=== PATIENT | female | born 1965 | race Caucasian/White ===

== ENCOUNTER 2022-11-05 19:38 | Emergency (ER) | payer OTHER, SELFPAY ==
--- NOTE | ~2022-11-05 | CT_ITS ---
EXAMINATION: CT ABDOMEN AND PELVIS WITHOUT CONTRAST CLINICAL INFORMATION: Left upper quadrant abdominal pain for about a week. COMPARISON: None TECHNIQUE: Multidetector volumetric imaging was performed from the superior aspect of the liver through the pubic symphysis. Sagittal and coronal reformatted images were obtained on the technologist's workstation. This CT examination was performed using dose optimization techniques as appropriate, variously including the following: *Automated exposure control *Adjustment of mA and/or kV according to patient size (this includes techniques or standardized protocols for targeted exams where dose is matched to indication/reason for exam; i.e. extremities or head) *Use of iterative reconstruction technique DLP: 752 mGy-cm FINDINGS: The lack of intravenous contrast limits evaluation of the solid visceral organs including the liver, spleen, pancreas, and kidneys. LUNG BASES: No focal consolidation or pleural effusion. LIVER, GALLBLADDER, AND BILIARY TREE: The liver is normal in size, shape, and attenuation. No focal hepatic lesion or biliary ductal dilatation is present. The gallbladder is unremarkable with no evidence of radiopaque gallstones, gallbladder wall thickening, or obvious pericholecystic inflammatory changes. PANCREAS: Unremarkable. SPLEEN: Unremarkable. ADRENAL GLANDS: Unremarkable. KIDNEYS AND URETERS: The kidneys are normal in size, shape, and attenuation. No hydronephrosis, hydroureter, or calculi seen. No perinephric stranding. BLADDER: Unremarkable. GASTROINTESTINAL TRACT: Small hiatal hernia. The stomach and the small bowel are nondilated. Normal appendix. Sigmoid diverticulosis but with no pericolonic inflammatory changes. No evidence of bowel obstruction. ABDOMINAL WALL: No significant hernia is appreciated. LYMPH NODES: No lymphadenopathy. VASCULAR: Limited noncontrast examination. Scattered atherosclerotic disease. The abdominal aorta is of normal diameter. PELVIC VISCERA: Unremarkable. OSSEOUS STRUCTURES: Nonspecific increase asymmetric sclerosis in the superior left iliac bone (4:445). Nonspecific focal heterogeneity of the bone marrow in the posterior left iliac bone (4:515). CT/CT abdomen pelvis wo IV con IMPRESSION: 1. Small hiatal hernia. 2. Sigmoid diverticulosis but no evidence of acute diverticulitis. 3. Nonspecific increased sclerosis in the superior left iliac bone and focal heterogeneity of the bone marrow in the posterior left iliac bone, of uncertain significance. There is no associated cortical disruption nor surrounding soft tissue abnormalities.. If indicated, consider further evaluation with an elective bone scan or pelvic MRI.
[2022-11-05 19:47] VITALS: BP 172/81; PULSE 81; RESP 20; TEMP 36.4; O2SAT 100; BMI 29.7
--- NOTE | 2022-11-05 19:48 | ED_ITS ---
HPI - Abdominal Pain General Chief Complaint: Abdominal Pain <LALA Quintana - Last Filed: 11/05/22 19:53> Stated Complaint: abdominal pain <LALA Quitnana - Last Filed: 11/05/22 19:53> Time Seen by Provider: 11/05/22 20:27 <LALA Quintana - Last Filed: 11/05/22 19:53> Source: patient <Laci Guillen MD - Last Filed: 11/05/22 22:46> Mode of arrival: ambulatory <Laci Guillen MD - Last Filed: 11/05/22 22:46> Limitations: no limitations <Laci Guillen MD - Last Filed: 11/05/22 22:46> History of Present Illness HPI narrative: Patient with history of diverticulitis complaining of pain in left upper quadrant for last 1 week , no nausea no vomiting no relation of pain with food no fever or chills no urinary complaints pain is in left upper quadrant comes and goes with no relation of movements patient's PCP called in for Cipro and Fla gyl yesterday for possible diverticulitis patient denies chest pain or shortness of breath no palpitation no diarrhea no bloody stool <Laci Guillen MD - Last Filed: 11/05/22 22:46> Related Data Home Medications: Previous Rx's Medication Instructions Recorded ibuprofen 600 mg tablet 600 mg PO Q6H PRN fever or pain 11/05/22 #30 tabs <LALA Quintana - Last Filed: 11/05/22 19:53> Allergies/Adverse Reactions: Allergies Allergy/AdvReac Type Severity Reaction Status Date / Time Penicillins Allergy Hives Verified 11/05/22 19:52 <LALA Quintana - Last Filed: 11/05/22 19:53> Review of Systems Review of Systems Yes all other systems are reviewed and are negative <Laci Guillen MD - Last Filed: 11/05/22 22:46> [facility] Social History Social History: Social History Advance Directives: No Advance Directives Information Provided: No <LALA Quintana - Last Filed: 11/05/22 19:53> Physical Exam ED Vital Signs: Vital Signs - 24 hr 11/05/22 19:47 Temperature 97.5 F Pulse Rate 81 Respiratory Rate 20 Blood Pressure 172/81 H Pulse Oximetry 100 Oxygen Delivery Method Room Air BMI result Body Mass Index 29.7 <LALA Quintana - Last Filed: 11/05/22 19:53> Vital Signs - 24 hr 11/05/22 19:47 Temperature 97.5 F Pulse Rate 81 Respiratory Rate 20 Blood Pressure 172/81 H Pulse Oximetry 100 Oxygen Delivery Method Room Air BMI result Body Mass Index 29.7 <Laci Guillen MD - Last Filed: 11/05/22 22:46> Appearance: Alert. Oriented X3. No acute distress. Eyes: PERRLA, No Nystagmus ENT: Pharynx normal. Oral Mucosa moist Neck: Normal inspection. Neck supple. CVS: Normal heart rate and rhythm. Pulses normal. Respiratory: No respiratory distress. Equal air entry bilateral, no wheezing/rales/rhonchi Abdomen: Soft , deep left upper quadrant tenderness. Bowel sounds are present, no mass palpable, no CVA tenderness Skin: Skin warm and dry. Normal skin color. Normal skin turgor. Extremities: No lower extremity edema. No calf tenderness Neuro: Oriented X 3. No motor deficit. <Laci Guillen MD - Last Filed: 11/05/22 22:46> Course Course Course Narrative: RME-19:50pm 57yoF c PMHx of Lucy's thyroiditis, diverticulosis presenting to the ER with complaints of LUQ abd pain x 1 week that continues to worsen. Reports she called her primary care provider and they started her on Cipro 500mg BID and Flagyl prescribed yesterday she reports she is taking as prescribed although no improvement in pain. Sharp throbbing LUQ pain radiating to left breast. Associated nausea. Denies any fevers, chest pain or shortness of breath, sore throat, dysuria, diarrhea constipation, black or bloody stools, recent travel or sick contacts or any other symptoms complaints or concerns at this time. Plan: Labs, UA, COVID/RSV/flu swab ordered, EKG, CT scan abdomen pelvis without IV contrast. Patient will be sent back to the waiting room to be evaluated in the ED. <LALA Quintana - Last Filed: 11/05/22 19:53> Medical Decision Making Medical Decision Making [facility] Narrative: Patient nonspecific left upper quadrant pain CT scan negative for diverticulitis showed diverticulosis likely the cause for the pain no signs of infection patient advised to take ibuprofen for pain <Laci Guillen MD - Last Filed: 11/05/22 22:46> Differential Diagnosis Differential Diagnoses: The differential diagnosis associated with the presentation includes <Laci Guillen MD - Last Filed: 11/05/22 22:46> Diverticulitis/kidney stone/ACS/PE <Laci Guillen MD - Last Filed: 11/05/22 22:46> Lab Data [facility] Lab Attestation statement: I reviewed the patient's lab results. <Laci Guillen MD - Last Filed: 11/05/22 22:46> Result Diagrams: 11/05/22 20:35 11/05/22 20:35 <LALA Quintana - Last Filed: 11/05/22 19:53> Labs: Lab Results 11/05/22 11/05/22 11/05/22 Range/Units 20:35 20:35 20:35 WBC 7.2 (4.8-10.8) X10*3/uL RBC 4.01 L (4.20-5.50) X10*6/uL Hgb 12.6 (12.0-16.0) g/dl Hct 38.2 (37.0-47.0) % MCV 95.3 (80.0-98.0) fL MCH 31.4 (27.0-33.0) pg MCHC 33.0 (31.0-35.0) g/dl RDW 13.1 (11.0-16.0) % Plt Count 250 (160-400) X10*3/uL MPV 9.9 (9.4-12.3) fL Immature Gran % (Auto) 0.1 (0.0-0.4) % Neut % (Auto) 50.2 (45-73) % Lymph % (Auto) 36.4 (20-40) % [place] % (Auto) 10.2 (2-11) % Eos % (Auto) 2.4 (0-4) % Baso % (Auto) 0.7 (0-2) % Lymph # (Auto) 2.6 (1.2-4.9) X10*3/uL [place] # (Auto) 0.7 (0.1-1.2) X10*3/uL Eos # (Auto) 0.2 (0.0-0.4) X10*3/uL Baso # (Auto) 0.1 (0.0-0.2) X10*3/uL Abs Immat Gran (auto) 0.01 (0.00-0.03) X10*3/uL Absolute Neuts (auto) 3.6 (2.0-8.3) x10*3/uL Absolute Nucleated RBC 0.000 (0.0-0.012) X10*3/uL Nucleated RBC % (auto) 0.0 (0.0-0.2) /100WBC PT 11.9 (10.0-13.1) SEC INR 1.0 (0.9-1.1) D-Dimer High Sensitivty 178 NG/ML Sodium 138 (135-145) mmol/L Potassium 4.3 (3.3-5.1) mmol/L Chloride 105 (96-108) mmol/L Carbon Dioxide 23 (22-29) mmol/L Anion Gap 14 (12-20) BUN 12 (9-16) mg/dL Creatinine 0.93 (0.5-1.4) mg/dL Estim Creat Clear Calc 73.4 Estimated GFR > 60 Random Glucose 108 (60-115) mg/dL Calcium 9.3 (8.4-10.2) mg/dL Magnesium 2.0 (1.6-2.6) mg/dL Total Bilirubin 0.4 (0.0-1.0) mg/dL AST 19 (5-31) U/L ALT 20 (0-31) U/L Alkaline Phosphatase 58 (39-117) U/L Lactate Dehydrogenase 172 (122-220) U/L Troponin I High Sens (<3.5-17.0) ng/L Total Protein 6.9 (6.5-8.0) g/dL Albumin 4.4 (3.5-5.0) g/dL Lipase 25 (8-78) U/L Urine Color Urine Appearance Urine pH (5.0-9.0) Ur Specific [place] (1.005-1.025) Urine Protein (Neg-Trace) mg/dL Urine Glucose (UA) (Negative) mg/dL Urine Ketones (Negative) mg/dL Urine Blood (Negative) Urine Nitrite (Negative) Ur Leukocyte Esterase (Negative) Urine RBC (0-2) /HPF Urine WBC (0-5) /HPF Ur Squamous Epith Cells (0-2) /HPF Urine Bacteria (None Seen) Hyaline Casts (0-2) /LPF Influenza Type A (PCR) (Negative) Influenza Type B (PCR) (Negative) RSV RNA Qual (PCR) (Negative) SARS-CoV-2 RNA (RT-PCR) (Negative) 11/05/22 11/05/22 11/05/22 Range/Units 20:35 20:35 20:47 WBC (4.8-10.8) X10*3/uL RBC (4.20-5.50) X10*6/uL Hgb (12.0-16.0) g/dl Hct (37.0-47.0) % MCV (80.0-98.0) fL MCH (27.0-33.0) pg MCHC (31.0-35.0) g/dl RDW (11.0-16.0) % Plt Count (160-400) X10*3/uL MPV (9.4-12.3) fL Immature Gran % (Auto) (0.0-0.4) % Neut % (Auto) (45-73) % Lymph % (Auto) (20-40) % [place] % (Auto) (2-11) % Eos % (Auto) (0-4) % Baso % (Auto) (0-2) % Lymph # (Auto) (1.2-4.9) X10*3/uL [place] # (Auto) (0.1-1.2) X10*3/uL Eos # (Auto) (0.0-0.4) X10*3/uL Baso # (Auto) (0.0-0.2) X10*3/uL Abs Immat Gran (auto) (0.00-0.03) X10*3/uL Absolute Neuts (auto) (2.0-8.3) x10*3/uL Absolute Nucleated RBC (0.0-0.012) X10*3/uL Nucleated RBC % (auto) (0.0-0.2) /100WBC PT (10.0-13.1) SEC INR (0.9-1.1) D-Dimer High Sensitivty NG/ML Sodium (135-145) mmol/L Potassium (3.3-5.1) mmol/L Chloride (96-108) mmol/L Carbon Dioxide (22-29) mmol/L Anion Gap (12-20) BUN (9-16) mg/dL Creatinine (0.5-1.4) mg/dL Estim Creat Clear Calc Estimated GFR Random Glucose (60-115) mg/dL Calcium (8.4-10.2) mg/dL Magnesium (1.6-2.6) mg/dL Total Bilirubin (0.0-1.0) mg/dL AST (5-31) U/L ALT (0-31) U/L Alkaline Phosphatase (39-117) U/L Lactate Dehydrogenase (122-220) U/L Troponin I High Sens < 3.5 (<3.5-17.0) ng/L Total Protein (6.5-8.0) g/dL Albumin (3.5-5.0) g/dL Lipase (8-78) U/L Urine Color Yellow Urine Appearance Clear Urine pH 5.0 (5.0-9.0) Ur Specific [place] 1.015 (1.005-1.025) Urine Protein Negative (Neg-Trace) mg/dL Urine Glucose (UA) Negative (Negative) mg/dL Urine Ketones Negative (Negative) mg/dL Urine Blood Negative (Negative) Urine Nitrite Negative (Negative) Ur Leukocyte Esterase Small (1+) H (Negative) Urine RBC 0-2 (0-2) /HPF Urine WBC 0-5 (0-5) /HPF Ur Squamous Epith Cells 0-2 (0-2) /HPF Urine Bacteria None Seen (None Seen) Hyaline Casts 0-2 (0-2) /LPF Influenza Type A (PCR) NEGATIVE (Negative) Influenza Type B (PCR) NEGATIVE (Negative) RSV RNA Qual (PCR) NEGATIVE (Negative) SARS-CoV-2 RNA (RT-PCR) NEGATIVE (Negative) <LALA Quintana - Last Filed: 11/05/22 19:53> Lab Results 11/05/22 11/05/22 11/05/22 Range/Units 20:35 20:35 20:35 WBC 7.2 (4.8-10.8) X10*3/uL RBC 4.01 L (4.20-5.50) X10*6/uL Hgb 12.6 (12.0-16.0) g/dl Hct 38.2 (37.0-47.0) % MCV 95.3 (80.0-98.0) fL MCH 31.4 (27.0-33.0) pg MCHC 33.0 (31.0-35.0) g/dl RDW 13.1 (11.0-16.0) % Plt Count 250 (160-400) X10*3/uL MPV 9.9 (9.4-12.3) fL Immature Gran % (Auto) 0.1 (0.0-0.4) % Neut % (Auto) 50.2 (45-73) % Lymph % (Auto) 36.4 (20-40) % [place] % (Auto) 10.2 (2-11) % Eos % (Auto) 2.4 (0-4) % Baso % (Auto) 0.7 (0-2) % Lymph # (Auto) 2.6 (1.2-4.9) X10*3/uL [place] # (Auto) 0.7 (0.1-1.2) X10*3/uL Eos # (Auto) 0.2 (0.0-0.4) X10*3/uL Baso # (Auto) 0.1 (0.0-0.2) X10*3/uL Abs Immat Gran (auto) 0.01 (0.00-0.03) X10*3/uL Absolute Neuts (auto) 3.6 (2.0-8.3) x10*3/uL Absolute Nucleated RBC 0.000 (0.0-0.012) X10*3/uL Nucleated RBC % (auto) 0.0 (0.0-0.2) /100WBC PT 11.9 (10.0-13.1) SEC INR 1.0 (0.9-1.1) D-Dimer High Sensitivty 178 NG/ML Sodium 138 (135-145) mmol/L Potassium 4.3 (3.3-5.1) mmol/L Chloride 105 (96-108) mmol/L Carbon Dioxide 23 (22-29) mmol/L Anion Gap 14 (12-20) BUN 12 (9-16) mg/dL Creatinine 0.93 (0.5-1.4) mg/dL Estim Creat Clear Calc 73.4 Estimated GFR > 60 Random Glucose 108 (60-115) mg/dL Calcium 9.3 (8.4-10.2) mg/dL Magnesium 2.0 (1.6-2.6) mg/dL Total Bilirubin 0.4 (0.0-1.0) mg/dL AST 19 (5-31) U/L ALT 20 (0-31) U/L Alkaline Phosphatase 58 (39-117) U/L Lactate Dehydrogenase 172 (122-220) U/L Troponin I High Sens (<3.5-17.0) ng/L Total Protein 6.9 (6.5-8.0) g/dL Albumin 4.4 (3.5-5.0) g/dL Lipase 25 (8-78) U/L Urine Color Urine Appearance Urine pH (5.0-9.0) Ur Specific [place] (1.005-1.025) Urine Protein (Neg-Trace) mg/dL Urine Glucose (UA) (Negative) mg/dL Urine Ketones (Negative) mg/dL Urine Blood (Negative) Urine Nitrite (Negative) Ur Leukocyte Esterase (Negative) Urine RBC (0-2) /HPF Urine WBC (0-5) /HPF Ur Squamous Epith Cells (0-2) /HPF Urine Bacteria (None Seen) Hyaline Casts (0-2) /LPF Influenza Type A (PCR) (Negative) Influenza Type B (PCR) (Negative) RSV RNA Qual (PCR) (Negative) SARS-CoV-2 RNA (RT-PCR) (Negative) 11/05/22 11/05/22 11/05/22 Range/Units 20:35 20:35 20:47 WBC (4.8-10.8) X10*3/uL RBC (4.20-5.50) X10*6/uL Hgb (12.0-16.0) g/dl Hct (37.0-47.0) % MCV (80.0-98.0) fL MCH (27.0-33.0) pg MCHC (31.0-35.0) g/dl RDW (11.0-16.0) % Plt Count (160-400) X10*3/uL MPV (9.4-12.3) fL Immature Gran % (Auto) (0.0-0.4) % Neut % (Auto) (45-73) % Lymph % (Auto) (20-40) % [place] % (Auto) (2-11) % Eos % (Auto) (0-4) % Baso % (Auto) (0-2) % Lymph # (Auto) (1.2-4.9) X10*3/uL [place] # (Auto) (0.1-1.2) X10*3/uL Eos # (Auto) (0.0-0.4) X10*3/uL Baso # (Auto) (0.0-0.2) X10*3/uL Abs Immat Gran (auto) (0.00-0.03) X10*3/uL Absolute Neuts (auto) (2.0-8.3) x10*3/uL Absolute Nucleated RBC (0.0-0.012) X10*3/uL Nucleated RBC % (auto) (0.0-0.2) /100WBC PT (10.0-13.1) SEC INR (0.9-1.1) D-Dimer High Sensitivty NG/ML Sodium (135-145) mmol/L Potassium (3.3-5.1) mmol/L Chloride (96-108) mmol/L Carbon Dioxide (22-29) mmol/L Anion Gap (12-20) BUN (9-16) mg/dL Creatinine (0.5-1.4) mg/dL Estim Creat Clear Calc Estimated GFR Random Glucose (60-115) mg/dL Calcium (8.4-10.2) mg/dL Magnesium (1.6-2.6) mg/dL Total Bilirubin (0.0-1.0) mg/dL AST (5-31) U/L ALT (0-31) U/L Alkaline Phosphatase (39-117) U/L Lactate Dehydrogenase (122-220) U/L Troponin I High Sens < 3.5 (<3.5-17.0) ng/L Total Protein (6.5-8.0) g/dL Albumin (3.5-5.0) g/dL Lipase (8-78) U/L Urine Color Yellow Urine Appearance Clear Urine pH 5.0 (5.0-9.0) Ur Specific [place] 1.015 (1.005-1.025) Urine Protein Negative (Neg-Trace) mg/dL Urine Glucose (UA) Negative (Negative) mg/dL Urine Ketones Negative (Negative) mg/dL Urine Blood Negative (Negative) Urine Nitrite Negative (Negative) Ur Leukocyte Esterase Small (1+) H (Negative) Urine RBC 0-2 (0-2) /HPF Urine WBC 0-5 (0-5) /HPF Ur Squamous Epith Cells 0-2 (0-2) /HPF Urine Bacteria None Seen (None Seen) Hyaline Casts 0-2 (0-2) /LPF Influenza Type A (PCR) NEGATIVE (Negative) Influenza Type B (PCR) NEGATIVE (Negative) RSV RNA Qual (PCR) NEGATIVE (Negative) SARS-CoV-2 RNA (RT-PCR) NEGATIVE (Negative) <Laci Guillen MD - Last Filed: 11/05/22 22:46> Independent Interpretation I performed an independent interpretation of an: EKG <Laci Guillen MD - Last Filed: 11/05/22 22:46> Interpretation: Normal sinus rhythm heart rate 80 beats per minute normal interval normal axis no acute ST T wave changes no acute ischemia <Laci Guillen MD - Last Filed: 11/05/22 22:46> Medications Administered Discontinued Medications Generic Name Dose Route Start Last Admin Trade Name Freq PRN Reason Stop Dose Admin Ketorolac Tromethamine 30 mg 11/05/22 21:05 11/05/22 21:42 Ketorolac Tromethamine 30 Mg/Ml Vial IVPUSH 11/05/22 21:06 30 mg ONCE ONE Administration <LALA Quintana - Last Filed: 11/05/22 19:53> Medications Administered Discontinued Medications Generic Name Dose Route Start Last Admin Trade Name Freq PRN Reason Stop Dose Admin Ketorolac Tromethamine 30 mg 11/05/22 21:05 11/05/22 21:42 Ketorolac Tromethamine 30 Mg/Ml Vial IVPUSH 11/05/22 21:06 30 mg ONCE ONE Administration <Laci Guillen MD - Last Filed: 11/05/22 22:46> Discharge Plan Discharge Clinical Impression: Diverticulosis <LALA Quintana - Last Filed: 11/05/22 19:53> Patient Disposition: Home, Self-Care <LALA Quintana - Last Filed: 11/05/22 19:53> Instructions: Diverticulosis (ED) <LALA Quintana - Last Filed: 11/05/22 19:53> Additional Instructions: Drink plenty of fluids at this time there is no signs of infection likely diverticulosis or musculoskeletal pain Drink plenty of fluids Ibuprofen for pain <LALA Quintana - Last Filed: 11/05/22 19:53> Prescriptions: New ibuprofen 600 mg tablet 600 mg PO Q6H PRN (Reason: fever or pain) Qty: 30 0RF <LALA Quintana - Last Filed: 11/05/22 19:53> Stand Alone Forms: Work/School Release <LALA Quintana - Last Filed: 11/05/22 19:53>
--- NOTE | 2022-11-05 19:52 | ECG_ITS ---
Test Reason : ABDOMINAL PAIN Blood Pressure : / mmHG Vent. Rate : 080 BPM Atrial Rate : 080 BPM P-R Int : 164 ms QRS Dur : 100 ms QT Int : 408 ms P-R-T Axes : 039 -13 033 degrees QTc Int : 470 ms Normal sinus rhythm Cannot rule out inferior MS Abnormal ECG No previous ECGs available Referred By: Mary Child Electronically Signed By:Samuel Bishop
[2022-11-05 20:41] LABS: MANUAL DIFF FLAG NO
[2022-11-05 20:43] LABS: Basophils Absolute Auto 0.1 X10*3/uL (0.0-0.2); Basophils Percent Auto 0.7 % (0-2); Eosinophils Absolute Auto 0.2 X10*3/uL (0.0-0.4); Eosinophils Percent Auto 2.4 % (0-4); Hematocrit 38.2 % (37.0-47.0); Hemoglobin 12.6 g/dl (12.0-16.0); Imm Gran Abs Auto 0.01 X10*3/uL (0.00-0.03); Imm Gran Pct Auto 0.1 % (0.0-0.4); Lymphocytes Absolute Auto 2.6 X10*3/uL (1.2-4.9); Lymphocytes Percent Auto 36.4 % (20-40); Mean Corpuscular Hemoglobin 31.4 pg (27.0-33.0); Mean Corpuscular Volume 95.3 fL (80.0-98.0); Mean Platelet Volume 9.9 fL (9.4-12.3); Monocytes Absolute Auto 0.7 X10*3/uL (0.1-1.2); Monocytes Percent Auto 10.2 % (2-11); Neutrophils Absolute Auto 3.6 x10*3/uL (2.0-8.3); Neutrophils Percent Auto 50.2 % (45-73); Platelet Count 250 X10*3/uL (160-400); Red Blood Count 4.01 X10*6/uL (4.20-5.50); Red Cell Distribution Width 13.1 % (11.0-16.0); White Blood Count 7.2 X10*3/uL (4.8-10.8)
[2022-11-05 20:50] LABS: Prothrombin Time 11.9 SEC (10.0-13.1)
[2022-11-05 20:56] LABS: Appearance Urine Clear; Color Urine Yellow; Glucose Urine UA Negative (Negative); Leukocyte Esterase Urine Small (1+) (Negative); Nitrite Urine Negative (Negative); Specific Gravity - Urine 1.015 (1.005-1.025); UMIC TRIGGER UACC YES; Urine Blood Negative (Negative); Urine Ketones Negative (Negative); Urine Protein Negative (Neg-Trace)
[2022-11-05 21:03] LABS: Alanine Aminotransferase 20 U/L (0-31); Albumin Level 4.4 g/dL (3.5-5.0); Alkaline Phosphatase 58 U/L (39-117); Anion Gap 14 (12-20); Aspartate Amino Transferase 19 U/L (5-31); Bilirubin Total 0.4 mg/dL (0.0-1.0); Blood Urea Nitrogen 12 mg/dL (9-16); Calcium 9.3 mg/dL (8.4-10.2); Carbon Dioxide 23 mmol/L (22-29); Chloride 105 mmol/L (96-108); Creatinine Clr Calc Pharmacy 73.4; Estimated Glomerular Filt Rate > 60; Glucose Random 108 mg/dL (60-115); Lactate Dehydrogenase 172 U/L (122-220); Lipase 25 U/L (8-78); Potassium 4.3 mmol/L (3.3-5.1); Sodium 138 mmol/L (135-145); Total Protein 6.9 g/dL (6.5-8.0)
[2022-11-05 21:17] LABS: D Dimer High Sensitivity 178 NG/ML
[2022-11-05 21:19] LABS: Influenza A PCR NEGATIVE (Negative); Influenza B PCR NEGATIVE (Negative); Resp Syncy Virus RNA Qual PCR NEGATIVE (Negative); SARS COV2 PCR INHOUSE NEGATIVE (Negative)
[2022-11-05 21:26] LABS: Bacteria Urine None Seen (None Seen); Hyaline Casts Urine 0-2 /LPF (0-2); RBC Urine 0-2 /HPF (0-2); Squamous Epithelial Cell Urine 0-2 /HPF (0-2); UACC Culture Trigger YES; WBC Urine 0-5 /HPF (0-5)
[2022-11-05 21:32] LABS: Troponin-I High Sensitivity < 3.5 ng/L (<3.5-17.0)
[2022-11-05] MEDS: Ketorolac Tromethamine 30 MG/ML VIAL IVPUSH (21:42)
--- OUTSIDE RECORDS SUMMARY | 2022-11-05 22:14 | XMS_ITS | Continuity of Care Document ---
:1965 Author Organization [facility] Address [address] [place] [address]- Care Team Providers Name Role Phone Jessica FRANCIS, Umesh Primary Care Physician Encounter [facility] [place] Date(s): 02/01/21 - 03/03/21 [facility] [address], [place] [address] Attending Physician: Nav Gil Admitting Physician: Nav Gil Referring Physician: Nav Gil Allergies, Adverse Reactions, Alerts Substance Reaction Severity Status tetracycline Active erythromycin Hives Active penicillin Active amoxicillin Active Immunizations Given and Recorded Vaccine Date Status Refusal Reason Diphth/Pertussis,Acel/Tetanus (oldterm) 07/12/07 Given Medications Synthroid 0.088 mg oral tablet 1 tablet = 88 mcg, By Mouth, Daily, # 30 tablet, 11 Refills, Maintenance, 11/06/18 10:58:21 EST, Tablet Start Date: 11/06/18 Status: Ordered Problem List Condition Effective Dates Status Health Status Informant Lucy's thyroiditis(Confirmed) Active Left thyroid nodule(Confirmed) Active Hives(Confirmed) Active
--- OUTSIDE RECORDS SUMMARY | 2022-11-05 22:14 | XMS_ITS | Continuity of Care Document ---
:1965 Author Organization [facility] Address [address] [place] [address]- Care Team Providers Name Role Phone Jessica FRANCIS, Umesh Primary Care Physician [place] [facility] [place]13[place] - 01/01/[address] [address]- [facility] Attending Physician: Rhonda Sol NP Admitting Physician: Rhonda Sol NP Referring Physician: Rhonda Sol NP Allergies, Adverse Reactions, Alerts Substance Reaction Severity Status tetracycline Active erythromycin Hives Active amoxicillin Active penicillin Active Immunizations Given and Recorded Vaccine Date [...]
--- OUTSIDE RECORDS SUMMARY | 2022-11-05 22:14 | XMS_ITS | Continuity of Care Document ---
:1965 Author Organization [facility] Address [address] [place] [address]- Care Team Providers Name Role Phone Jessica FRANCIS, Umesh Primary Care Physician Encounter [facility] Date(s): 12/03/19 - 04/29/[address] [address]- [facility] Attending Physician: Rhonda Sol NP Admitting Physician: [...]
--- OUTSIDE RECORDS SUMMARY | 2022-11-05 22:14 | XMS_ITS | Continuity of Care Document ---
:1965 Author Organization [facility] Address [address] [place] [address]- Care Team Providers Name Role Phone Umesh Lopez MD Primary Care Physician Encounter [facility] [place] [facility] [id number] Date(s): 12/15/20 - 02/10/21 [facility] [address] [place], [place] [address] Attending Physician: Poppy Bronson NP Admitting Physician: Aiyana DUMONT, Poppy Referring Physician: Umesh Lopez MD Allergies, Adverse Reactions, Alerts Substance Reaction Severity [...]
--- OUTSIDE RECORDS SUMMARY | 2022-11-05 22:14 | XMS_ITS | Continuity of Care Document ---
:1965 Author Organization [facility] Address [address] [place] [address]- Care Team Providers Name Role Phone Jessica FRANCIS, Umesh Primary Care Physician Encounter [facility] [place] Date(s): 12/15/20 - 01/14/21 [facility] [address] [place], [place] [address] Allergies, Adverse Reactions, Alerts Substance Reaction Severity [...]
--- OUTSIDE RECORDS SUMMARY | 2022-11-05 22:14 | XMS_ITS | Continuity of Care Document ---
:1965 Author Organization [facility] Address [address] [place] [address]- Care Team Providers Name Role Phone Umesh Lopez MD Primary Care Physician Encounter [facility] [place] Date(s): 12/23/20 - 03/03/21 [facility] [address] [place], [place] [address] Attending Physician: Sidney Raines MD Admitting Physician: Sidney Raines MD Referring Physician: Umesh Lopez MD Allergies, Adverse [...]
== END 2022-11-05 22:45 | disposition home or self-care (01) ==
PROVIDERS: Physician Assistant Medical; Emergency Provider Internal Medicine; PCP Internal Medicine
DX: K57.30 Diverticulosis of large intestine without perforation or abscess without bleeding (principal); Z20.822 Contact with and (suspected) exposure to COVID-19; Z20.828 Contact with and (suspected) exposure to other viral communicable diseases; Z79.899 Other long term (current) drug therapy
CPT/HCPCS: 0241U; 36415; 74176; 80053; 81001; 83615; 83690; 83735; 84484; 85025; 85379; 85610; 87086; 93005; 99284; J1885